=== PATIENT | male | born 1990 | race Caucasian/White ===

== ENCOUNTER 2017-11-03 21:15 | Emergency (ER) | payer SELFPAY ==
--- NOTE | 2017-11-03 21:40 | ED Physician Documentation ---
Sore Throat/Dental Pain - HISTORIAN Historian: patient - HPI Stated Complaint: sore throat Chief Complaint: Sore Throat Onset: hours (yesterday morning) Further Comments: yes (27 year old male patient presents with complaint of sore throat and fever. Patient c/o severe pain with swallowing. Used Tylenol earlier today.) - ROS CONST: no problems CVS/RESP: none GI/: denies: nausea, vomiting MS/SKIN/LYMPH: denies: muscle aches, rash, leg swelling, ankle swelling, other NEURO/PSYCH: none - PAST HX Past History: none Other History: none Allergies/Adverse Reactions: Allergies Allergy/AdvReac Type Severity Reaction Status Date / Time No Known Allergies Allergy Verified 11/03/17 21:35 Home Medications: Ambulatory Orders Medication Instructions Recorded NK 11/03/17 - SOCIAL HX Smoking History: non-smoker - FAMILY HX Family History: No - VITAL SIGNS Vital Signs: Vital Signs Temp Pulse Resp BP Pulse Ox 99.9 F H 110 H 18 138/84 94 11/03/17 21:15 11/03/17 21:15 11/03/17 21:15 11/03/17 21:15 11/03/17 21:15 - REVIEWED ASSESSMENTS Nursing Assessment Reviewed: Yes Vitals Reviewed: Yes Progress - Progress Progress: Will treat like strep pharyngitis; large amount of pus noted on bilateral tonsils. Patient c/o severe pain with swallowing. Will treat with IM bicillin in ER. ED Results Lab/Radiology - Orders Orders: ED Orders Category Date Time Status Rapid Strep [GRP A STREP SCREEN] Stat Lab 11/03/17 Ordered Penicillin G Benzathine [Bicillin l-A] Med 11/03/17 21:37 Once 1,200,000 units IM NOW ONE Sore throat Physical Exam - EXAM General Appearance: mild distress Head/Neck: head nml inspection, trachea midline, no lymphadenopathy, thyroid nml, neck nml inspection Mouth/Throat: lips nml, gums nml, pharynx nml, voice nml, no drooling, no air way problems, no thrush, membranes nml, pharyngeal erythema, tonsillar exudate (large amount of exudate noted on bilateral tonsils. ) Respiratory: no resp. distress, breath sounds nml CVS: reg. rate & rhythm, heart sounds nml Abdomen: soft, no organomegaly, normal bowel sounds, no abdominal bruit, no distension Extremities: non-tender, nml ROM Skin: normal color, warm/dry, NR, INT, PAL, DR Neuro/Psych: oriented x3, mood/affect nml Discharge Clincal Impression: Pharyngitis Qualifiers: Pharyngitis/tonsillitis etiology: other specified organisms Qualified Code(s): J02.8 - Acute pharyngitis due to other specified organisms Referrals: Primary Doctor,No [Primary Care Provider] - 2 Days Additional Instructions: Chloraseptic spray or lozenges as needed for throat pain. Warm salt water gargles as needed pain Increase your fluid intake juices, hot tea, non-caffeinated beverages If you are congested - You may want to try Vicks rub on your chest and/or feet Use a humidifier in the room where you sleep. You can also sit in a steam filled bathroom 1-2 times a day. Tylenol or Ibuprofen as needed for fever, pain and body aches. Condition: Stable Disposition: 01 HOME, SELF-CARE Decision to Admit: NO Decision Time: 21:40
[2017-11-03] MEDS: PENICILLIN G BENZATHINE 1,200,000 UNITS INJ IM ONE (21:43)
[2017-11-03 21:54] VITALS: BP 139/82
== END 2017-11-03 21:45 | disposition home or self-care (01) ==
LOC: ED 21:15
DX: J02.8 Acute pharyngitis due to other specified organisms (principal)
CPT/HCPCS: 87070; 87880; J0561; 96372; 99283